=== PATIENT | male | born 1995 | race Caucasian/White ===

== ENCOUNTER 2018-12-29 14:44 | Emergency (ER) | payer MEDICAID ==
[~2018-12-29] VITALS: Ht 167.6 cm; Wt 94.3 kg
[2018-12-29 15:14] VITALS: Ht 167.6 cm; Wt 94.3 kg
[2018-12-29 18:30] VITALS: BP 154/81
== END 2018-12-29 18:30 | disposition home or self-care (01) ==
LOC: ED 14:44
DX: J06.9 Acute upper respiratory infection, unspecified (principal); J40 Bronchitis, not specified as acute or chronic
CPT/HCPCS: 87804; J1885

== ENCOUNTER 2019-08-03 11:42 | Emergency (ER) | payer MEDICAID ==
[~2019-08-03] VITALS: Ht 167.6 cm; Wt 91.9 kg
[2019-08-03 11:50] VITALS: Ht 167.6 cm; Wt 91.9 kg
[2019-08-03 13:11] VITALS: BP 157/72
== END 2019-08-03 13:11 | disposition home or self-care (01) ==
LOC: ED 11:42
DX: S46.112A Strain of muscle, fascia and tendon of long head of biceps, left arm, initial encounter (principal); X50.0XXA Overexertion from strenuous movement or load, initial encounter; Y93.89 Activity, other specified; Y92.89 Other specified places as the place of occurrence of the external cause; Y99.8 Other external cause status

== ENCOUNTER 2019-09-21 22:07 | Emergency (ER) | payer MEDICAID ==
[~2019-09-21] VITALS: Ht 170.2 cm; Wt 90.7 kg
[2019-09-21 22:31] VITALS: BP 151/98; Ht 170.2 cm; Wt 90.7 kg
== END 2019-09-22 00:23 | disposition home or self-care (01) ==
LOC: ED 22:07
DX: S93.401A Sprain of unspecified ligament of right ankle, initial encounter (principal); W18.30XA Fall on same level, unspecified, initial encounter; Y93.89 Activity, other specified; Y92.89 Other specified places as the place of occurrence of the external cause; Y99.8 Other external cause status
CPT/HCPCS: Q0092